=== PATIENT | female | born 1940 | race Caucasian/White ===

== ENCOUNTER 2016-05-16 04:15 | Emergency (ER) | payer MEDICARE, BC ==
[2016-05-16] MEDS ORDERED: LORAZEPAM 2 MG/ML VIAL ONE (04:57)
[2016-05-16] MEDS ORDERED: ONDANSETRON 4 MG VIAL ONE (04:57)
[2016-05-16] MEDS ORDERED: KEPPRA 500 MG in SOD CHLOR 0.9% INJ 100 ML IV ONE (05:35)
[2016-05-16] MEDS ORDERED: ACETAMINOPHEN 325 MG TAB ONE (06:54)
[2016-05-16] MEDS ORDERED: CEFTRIAXONE 1 GM VIAL ONE (07:18)
[2016-05-16] MEDS ORDERED: SODIUM CHLORIDE 0.9% 500 ML IV ONE (07:19)
[2016-05-16] MEDS ORDERED: SODIUM CHLORIDE 0.9% 100 ML IV ONE (07:19)
== END 2016-05-16 08:46 | disposition home or self-care (01) ==
LOC: ER 04:15
DX: G40.909 Epilepsy, unspecified, not intractable, without status epilepticus (principal); Z79.899 Other long term (current) drug therapy; N39.0 Urinary tract infection, site not specified; T42.6X6A Underdosing of other antiepileptic and sedative-hypnotic drugs, initial encounter; R07.9 Chest pain, unspecified; Z79.82 Long term (current) use of aspirin
CPT/HCPCS: 36415; 70450; 71010; 80053; 81001; 82550; 82553; 82947; 83880; 84484; 85025; 87088; 93005; 96361; 96365; 96367; 96375; 99285; J0696; J1953; J2405; J7040; J7050